=== PATIENT | male | born 1995 | race Caucasian/White ===

== ENCOUNTER 2018-10-12 20:30 | Emergency (ER) | payer MEDICAID ==
[2018-10-12] MEDS ORDERED: Ketorolac 30 MG/ML SDV IVPUSH ONE (21:50)
[2018-10-12] MEDS ORDERED: LORazepam 2 MG/ML SDV IVPUSH ONE (21:50)
[2018-10-12] MEDS ORDERED: Morphine 4 MG/ML Syringe IVPUSH ONE (21:50)
[2018-10-12] MEDS ORDERED: Sodium Chloride 0.9% 10 ML Syringe FLUSH PRN (21:54)
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
--- NOTE | 2018-10-12 23:00 | CRLCR ---
INDICATION: Injury accident. COMPARISON: None. FINDINGS/IMPRESSION: Left shoulder, 3 views. No acute fracture or dislocation identified in the left shoulder. Question of nondisplaced fracture of the posteromedial left 4th rib; clinical correlation for focal tenderness here is suggested. Dictated by Jose Beach MD @ 10/12/2018 10:59:15 PM Dictated by: Jose Beach MD @ 10/12/2018 22:59:30 (Electronically Signed)
--- NOTE | 2018-10-12 23:09 | CRLCR ---
Indication: Injury Technique: Chest 2 view. Comparison: None Findings: Cardiovascular and mediastinum: Heart size and vasculature are normal in caliber and appearance. Mediastinum is within normal limits. Lungs and pleural space: Lungs are clear. No sign of infiltrate or mass. No sign of pleural effusion. No pneumothorax. Bones and soft tissues: No significant findings. Impression: No sign of acute disease. Dictated by Deana Tenorio MD @ Oct 12 2018 11:07PM Signed by Dr. Deana Tenorio @ Oct 12 2018 11:07PM
--- NOTE | 2018-10-12 23:11 | CRLCR ---
Indication: Injury Technique: Two views left scapula Comparison: None Findings: Bones: Alignment is normal. No fractures or bone lesions. Joint spaces: Unremarkable. Soft tissues: Unremarkable. Impression: Negative. Dictated by Deana Tenorio MD @ Oct 12 2018 11:07PM Signed by Dr. Deana Tenorio @ Oct 12 2018 11:09PM
== END 2018-10-12 23:25 | disposition home or self-care (01) ==
LOC: JP.ED 20:30
DX: S22.32XA Fracture of one rib, left side, initial encounter for closed fracture (principal); S49.92XA Unspecified injury of left shoulder and upper arm, initial encounter; M62.838 Other muscle spasm; V86.06XA Driver of dirt bike or motor/cross bike injured in traffic accident, initial encounter
CPT/HCPCS: 71046; 73010; 73030; 96374; 96375; 99283; J1885; J2060; J2270

== ENCOUNTER 2020-08-03 16:22 | Emergency (ER) | payer MEDICAID, OTHER ==
[2020-08-03] MEDS ORDERED: Bacitracin Oint 1 GM U/D Packet TOP ONE (18:25)
[2020-08-03] MEDS ORDERED: Diphtheria,Pertussis(Acell),Tetanus Vaccine 0.5 ML Syringe IM ONE (18:26)
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
--- NOTE | 2020-08-04 09:04 | CR ---
Fingers Thumb Rt F5 CLINICAL HISTORY: Injury FINDINGS: There is a slightly displaced fracture of the first distal phalanx. There is extension into the articular surface IMPRESSION: Fracture first distal phalanx
== END 2020-08-03 21:16 | disposition home or self-care (01) ==
LOC: JP.ED 16:22
DX: S62.521B Displaced fracture of distal phalanx of right thumb, initial encounter for open fracture (principal); Z23 Encounter for immunization; W23.0XXA Caught, crushed, jammed, or pinched between moving objects, initial encounter
CPT/HCPCS: 12002; 73140-26-F5; 73140-F5; 90471; 90715; 99283-25